=== PATIENT | male | born 1950 | race Caucasian/White ===

== ENCOUNTER → 2023-09-02 16:50 | Outpatient (REF) | payer MEDICARE, BC, SELFPAY | LOC: RCS 16:50 | PROVIDERS: ATTENDING PHYSICIAN Internal Medicine Cardiovascular Disease; FAMILY PHYSICIAN Family Medicine | DX: R07.9 Chest pain, unspecified (principal) | CPT/HCPCS: 93306 ==

== ENCOUNTER → 2023-09-17 07:06 | Outpatient (REF) | payer MEDICARE, BC, SELFPAY | LOC: DHCBC/DCA 07:06 | PROVIDERS: ATTENDING PHYSICIAN Internal Medicine Cardiovascular Disease; FAMILY PHYSICIAN Family Medicine | DX: R07.9 Chest pain, unspecified (principal) | CPT/HCPCS: 78452; 93017; A9500 ==

== ENCOUNTER 2023-09-28 06:15 | Day surgery (SDC) | payer MEDICARE, BC, SELFPAY ==
[2023-09-28] VITALS (9 sets, daily range): BP systolic 100–140; BP diastolic 57–66; BMI 22.9
[2023-09-28] MEDS: NSS 236 ML IV (06:40)
[2023-09-28] MEDS: LOW STRENGTH ASPIRIN 324 MG PO (06:59)
--- NOTE | 2023-09-28 07:14 | ITS.CL.CATH ---
Control Operator - Catheterization
Cardiac Catheterization
Procedure Report:
LEFT HEART CATHETERIZATION
Date of Procedure: September 28, 2023
Referring: José Miguel Garcia D.O.
PROCEDURES:
1. Left heart catheterization, coronary angiogram.
2. Ultrasound-guided access
INDICATION: Cyril is a 73-year-old gentleman with past medical history of hyperlipidemia, hypothyroidism who presents with atypical chest discomfort ongoing for the last 9 months, off-and-on episodes, usually at rest, lasting less than a minute.
Echocardiogram with normal biventricular function without significant valvular disease. Exercise nuclear stress test noted fixed perfusion defects with borderline positive ECG testing with EF of 45%. In the setting he is now being referred for a
left heart catheterization to rule out obstructive CAD. He is unable to tolerate any beta-blockers or calcium channel blockers in the setting of dizziness and relative bradycardia.
ACCESS: Right radial artery, 6 [place] sheath, under ultrasound guidance.
HEMODYNAMICS : (mmHg)
AO (s/d) : 130/64
LV (s/d) : 129/5
LVEDP : 12
CORONARY FINDINGS
DOMINANCE: Left
LEFT MAIN: The left main artery is a large-caliber vessel which gives rise to the left anterior descending artery and a large, dominant left circumflex artery. Angiographically normal.
LEFT ANTERIOR DESCENDING: The left anterior descending artery is a large-caliber vessel which gives rise to multiple small caliber diagonal branches as it courses through the anterior interventricular groove and wraps around the apex. There is
minimal luminal irregularities.
CIRCUMFLEX: The left circumflex artery is a large-caliber, dominant vessel which gives rise to 1 major obtuse marginal branch, a small left posterolateral branch and the left PDA. There is minimal luminal irregularities.
RIGHT CORONARY ARTERY: The right coronary artery is a small caliber, nondominant vessel which appears angiographically normal.
SEDATION: 36 minutes of procedural sedation was utilized. An independent medical housekeeper was present to assist with and help manage the patient's level of consciousness and physiologic status.
RADIATION SUMMARY: Fluoro Time (min): 2.1, Dose (mGy): 149.26, DAP (Gy.cm2) : 11.1
Closure Device: Vascular band over right radial artery, 10 cc of
CONCLUSIONS
1. Left dominant circulation.
2. No obstructive coronary artery disease.
RECOMMENDATIONS
1. Optimization of cardiovascular risk factors.
2. Wean radial band per protocol.
Copy to: José Miguel Garcia D.O.
Tricia Singer MD, FAC, [facility]
== END 2023-09-28 11:30 | disposition home or self-care (01) ==
LOC: CATH 06:15
PROVIDERS: ATTENDING PHYSICIAN Internal Medicine Interventional Cardiology; FAMILY PHYSICIAN Family Medicine
DX: R07.89 Other chest pain (principal); E03.9 Hypothyroidism, unspecified; E78.5 Hyperlipidemia, unspecified
CPT/HCPCS: 99152; 99153; 76937; 93458; C1894; Q9967